=== PATIENT | male | born 1990 | race Hispanic/Latino ===

== ENCOUNTER 2016-06-07 21:14 | Emergency (ER) | payer BC, OTHER ==
[2016-06-07 21:25] VITALS: PULSE 74; RESP 18; TEMP 97.5; O2SAT 100
[2016-06-07] MEDS ORDERED: TDAP Vaccine 0.5 mL Syr IM ONE (21:52)
--- NOTE | 2016-06-07 21:52 | ED PDOC ---
HPI: Skin/Bite Injury Time Seen by Provider: 06/07/16 21:37 Chief Complaint (Nursing): Trauma Chief Complaint (Provider): Abrasions History Per: Patient History/Exam Limitations: no limitations Onset/Duration Of Symptoms: Days (sustained yesterday) Current Symptoms Are (Timing): Still Present Location Of Injury: Right: Arm, Leg, Left: Arm, Leg, Anterior: Arm, Leg, Posterior: Arm, Leg Additional Complaint(s): Darius Edward is a 26 year old male, with no pertinent past medical history, who presents to the ED on 06/07/16 for the evaluation of multiple superficial abrasions to all 4 extremities that he had sustained last night when he had fallen into an 8-10ft deep hole in his backyard. Patient reports managing to hold himself up somewhat on the edge of the hole, then having landed on his feet. Denies any loss of consciousness or additional complaints at this time, further stating that the only reason he had come to the ED was for a tetanus booster as his last one was administered more than 10 years ago. PMD: none Past Medical History Reviewed: Historical Data, Nursing Documentation, Vital Signs Vital Signs: Last Vital Signs Temp 97.5 F L 06/07/16 21:23 Pulse 74 06/07/16 21:23 Resp 18 06/07/16 21:23 BP 158/82 H 06/07/16 21:23 Pulse Ox 100 06/07/16 21:54 - Medical History PMH: No Chronic Diseases - Family History Family History: States: Unknown Family Hx - Immunization History Hx Tetanus Toxoid Vaccination: No - Home Medications Home Medications: Ambulatory Orders Medication Instructions Recorded Clindamycin [Cleocin] 300 mg PO BID #14 cap 06/07/16 Ibuprofen [Motrin] 600 mg PO Q6 #20 tab 06/07/16 - Allergies Allergies/Adverse Reactions: Allergies Allergy/AdvReac Type Severity Reaction Status Date / Time cefaclor [[facility] Allergy RASH Verified 06/07/16 21:23 Review of Systems Skin: Positive for: Other (multiple superficial abrasions x4 extremities) Physical Exam - Reviewed Nursing Documentation Reviewed: Yes Vital Signs Reviewed: Yes - Physical Exam Appears: Positive for: Non-toxic, No Acute Distress Extremity: Positive for: Normal ROM (FROM x4 extremities), Other (multiple superficial abrasions noted to all 4 extremities, no active bleeding) Neurologic/Psych: Positive for: Alert, Oriented - ECG O2 Sat by Pulse Oximetry: 100 (RA) Pulse Ox Interpretation: Normal (R) Medical Decision Making Medical Decision Makin:37 Initial Impression: abrasions Analgesics declined at this time Initial Plan: * TDAP 0.5ml IM * Reevaluation Imaging studies not clinically indicated at this time Abrasion sites cleaned and dressed by writer editor. Scribe Attestation: Documented by Emmanuelle Henning, acting as a scribe for Maggie Rocha PA-C. Provider Scribe Attestation: All medical record entries made by the Scribe were at my direction and personally dictated by me. I have reviewed the chart and agree that the record accurately reflects my personal performance of the history, physical exam, medical decision making, and the department course for this patient. I have also personally directed, reviewed, and agree with the discharge instructions and disposition. Disposition - Clinical Impression Clinical Impression: Abrasions of multiple sites, Multiple contusions - Patient ED Disposition Is Patient to be Admitted: No - Disposition Disposition: Routine/Home Disposition Time: 22:36 Condition: STABLE Prescriptions: Clindamycin [Cleocin] 300 mg PO BID #14 cap Ibuprofen [Motrin] 600 mg PO Q6 #20 tab Instructions: Contusion in Adults (ED), Abrasion (ED) - POA Present On Arrival: Falls Or Trauma
[2016-06-07 22:35] VITALS: BP 136/80
== END 2016-06-07 22:34 | disposition home or self-care (01) ==
LOC: H.ER 21:14
DX: T14.8 Other injury of unspecified body region (principal); W17.2XXA Fall into hole, initial encounter; Y92.008 Other place in unspecified non-institutional (private) residence as the place of occurrence of the external cause